=== PATIENT | male | born 1965 | race Caucasian/White ===

== ENCOUNTER → 2021-12-24 | Outpatient (CLI) | payer OTHER ==
[2015-08-24 19:23] VITALS: BP 137/92
[~2021-12-24] MED LIST: ALLO300T PO; CELE200C PO; CYAN-25 PO; ERGO2000 PO; GABA-585 PO; PHEN37.53 PO; SERT100T PO
--- NOTE | 2021-12-24 14:43 | PDOC1 ---
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 which is exacerbated the pain significantly patient reports pain across the low back and the bilateral lower extremities posterior gluteus posterior lateral thigh lateral anterior thigh anteromedial thighs medial lower leg some in the posterior calf as well and into the top of the foot bilaterally patient reports is slightly worse on the left than the right but present bilaterally worse with walking standing changing positions standing for more than 10 to 15minutes patient must sit and rest patient reports is awakened from sleep about 2-3 times a night does not affect his bowel bladder control but does affect his go to walk otherwise not use any assistive devices ambulate currently. Patient reports that he is sad chiropractic treatment in the past also is doing exercises from that at home also doing some walking every other day when he can patient has a TENS unit that he is borrowed from his son which she tried but was not successful in decreasing the pain as well. Patient reports is been taking [id number] Tylenol as well as ibuprofen neither which is decreasing the pain very significantly he is taking oxycodone which does help but only for about 1hour at the most. Patient reports disability rating 0-10 10 being the worst is a 10 with home responsibilities recreation social activity occupation sexual behavior and self-care and 8 with life support activities. Patient have a MRI scan of the lumbar spine showing L4-5 mild degenerative loss of disc height with small diffuse posterior disc bulge ligamentum flavum hypertrophy with effacement of the lateral recesses more so on the left mild to moderate left and mild right foraminal narrowing identified L5- S1 shows small intervertebral disc space with lateral recess is mildly effaced left foramen is mildly narrowed. Patient reports no loss of motor function but significant fatigability of both lower extremities with any walking or standing. Patient reports no bowel or bladder incontinence. PAST MEDICAL HISTORY: PMH: Arthritis, obesity, sleep apnea PREVIOUS SURGERIES: Past Surgical Hx: Right eye surgery status post injury CURRENT MEDICATIONS: Current Meds: Active Scripts Medications Dose Route/Sig Max Daily Dose Days Date Category Allopurinol 300 Mg Tablet 1 Tab PO DAILY 12/24/21 Reported Vitamin D2 (Ergocalciferol (Vitamin D2)) 50 Mcg Tablet 50 Mcg PO DAILY 12/24/21 Reported Zoloft (Sertraline Hcl) 100 Mg Tablet 1 Tab PO DAILY 12/24/21 Reported Gabapentin (Gabapentin) 100 Mg Capsule 100 Mg PO BID 12/24/21 Reported Celebrex (Celecoxib) 200 Mg Capsule 1 Cap PO DAILY 12/24/21 Reported Vitamin B-12 (Cyanocobalamin (Vitamin B-12)) 1,000 Mcg Tablet 1 Tab PO DAILY 30 12/24/21 Reported Phentermine Hcl 37.5 Mg Capsule 1 Cap PO DAILYWBKFT 12/24/21 Reported ALLERGIES; Allergies: Coded Allergies: No Known Drug Allergies (Unverified , 09/06/14) FAMILY HISTORY: Family Hx: No major medical problems or conditions that he is aware of SOCIAL HISTORY: Social Hx: Patient drinks alcohol maybe 2-3 drinks a month does not smoke not use any illegal licit recreational drugs lives with his spouse lives locally in [facility] and works as a large truck shop mechanic. REVIEW OF SYSTEMS: ROS: Positive for those items mentioned in history of present illness, all systems are reviewed, otherwise negative ,and are complete full and well-documented on patient's chart. PHYSICAL EXAM: VS: Blood pressure is 162/77 pulse 94 respirations 16 temperature 90.3 F height is 5 feet 7 inches weight is 281 pounds. PE: PHYSICAL EXAMINATION: GENERAL: The patient is awake, alert, oriented, appropriate, very pleasant in demeanor HEENT: Shows normocephalic, atraumatic. Extraocular movements are intact and symmetrical, right pupil slightly larger than left. Oral cavity: Mucous membranes moist and pink. Dentition is intact. NECK: Shows anterior throat supple without palpable lymphadenopathy noted. S wallow reflex symmetrical. CHEST: Shows normal on inspection. Breath sounds are clear bilaterally, with no rales rhonchi or wheezes auscultated. HEART: Shows S1, S2 clear. No murmurs auscultated. ABDOMEN: Soft, nontender, nondistended. No palpable organomegaly is noted. No rebound or guarding demonstrated. BACK: Shows spine grossly in the midline. Normal-appearing cervical lordotic curvature. There is slightly increased thoracic kyphosis, some minor flattening of the lumbar lordotic curvature. Lumbar paraspinous muscles show symmetrical on inspection, on palpation shows some moderate tenderness diffusely throughout the upper, middle and lower distribution of the paraspinous muscles bilaterally and also into the lower thoracic paraspinous musculature, firm and tender, but without specific trigger points, without radiation of pain. The patient has good rotational motion of the lumbar spine, both laterally as well as extension and flexion without significant difficulty. No tenderness over the spinous pr ocesses, sacrum or sacroiliac regions. EXTREMITIES: Lower extremities show deep tendon reflexes 2+ in the patellar and tendo calcaneus tendons. Motor exam is 4 on a scale of 5 with right dorsiflexion, extension, quadriceps and hamstring flexion and 4/5 on the left. Peripheral pulses are 1+ posterior tibial. No peripheral edema is noted bilaterally. Lower extremities are warm and dry to touch, equal in color and appearance. Straight leg raise noted to be positive on the left at approximate 45 degrees decreased knee flexion negative on the right. Gaenslen's and Lan's maneuvers are negative bilaterally. The patient is able to stand, stand on his toes without significant difficulty or loss of balance walks with a slight favoring gait does appear to favor the left lower extremity slightly but not use any assistive devices to ambulate. SKIN: Shows warm and dry, good turgor. No edema. No sores, rashes or bruising throughout. IMPRESSION: Impression: 56-year-old male with approximate 14-month history low back bilateral lower extremity pain slightly worse on the left than right present bilaterally f ollowing an L4-5 dermatomal distribution. MRI scan lumbar spine as noted. Arthritis Shortness of breath with sleep apnea Plan: Options were discussed with the patient and patient spouse who accompanied him to his visit today. We discussed interventional techniques as well as medication management and continued physical therapies. Patient would like to pursue interventional techniques. We discussed a lumbar epidural steroid injections description as well as anatomical models to describe the procedure. Patient will wait for preauthorization with insurance provider, once obtained we will plan on translaminar approach L4-5 level lumbar epidural steroid injection with fluoroscopic guidance. In meantime, will call in a prescription for a Medrol Dosepak, patient was given instructions well side effects beware with the medication. Patient will continue with stretching strength exercises walking as tolerated, and oral analgesics as currently. KERON STAHL MD Dec 24, 2021 14:43
== END | disposition home or self-care (01) ==
LOC: PNCL 14:09
PROVIDERS: ATTEND Anesthesiology
DX: M54.50 Low back pain, unspecified (principal); M79.605 Pain in left leg; M79.604 Pain in right leg; M19.90 Unspecified osteoarthritis, unspecified site; E66.9 Obesity, unspecified; G47.30 Sleep apnea, unspecified; Z79.899 Other long term (current) drug therapy
CPT/HCPCS: G0463

== ENCOUNTER → 2022-01-02 | Outpatient (CLI) | payer OTHER ==
[2015-08-24 19:23] VITALS: BP 137/92
[~2022-01-02] MED LIST changes: +DEXAMETHASONE PRES.FREE 10 MG/ML VIAL. ONE; +IOHEXOL 180 MG/ML 10 ML VIAL. ONE
--- NOTE | 2022-01-02 12:20 | PDOC ---
Progress Note - Pain Clinic Date of Service: DOS: DATE: 01/02/22 TIME: 12:18 Diagnosis: Dx: Lumbar radiculopathy with lumbar degenerative disc disease History or Present Illness: HPI: 56-year-old male returns for follow-up status post initial evaluation and preauthorization for lumbar epidural steroid injection. Patient reports still pain in the low back bilateral lower extremities right essentially equal to left at this time patient reports its worse with walking standing changing positions better with sitting or laying down generally does not awaken her from sleep at night patient reports an 8-9 on scale 10 is worst 8 on average 8 its least is an 8 today. We did try Medrol Dosepak and patient did well with this for about 5 days patient reports pain is reduced by about 40 to 50% within began to return after the Medrol Dosepak was finished. Patient reports no new motor or sensory deficits no bowel or bladder incontinence. Physical Exam: VS: Blood pressure is 160/86 pulse 83 respirations 18 temperature 98.0 F height 5 feet 7 inches weight 276 pounds. PE: PHYSICAL EXAMINATION: GENERAL: The patient is awake, alert, oriented, appropriate, very pleasant in demeanor HEENT: Shows normocephalic, atraumatic. Extraocular movements are intact and symmetrical. Oral cavity: Mucous membranes moist and pink. Dentition is intact. NECK: Shows anterior throat supple without palpable lymphadenopathy noted. Swallow reflex symmetrical. CHEST: Shows normal on inspection. Breath sounds are clear bilaterally. HEART: Shows S1, S2 clear. No murmurs auscultated. ABDOMEN: Soft, nontender, nondistended. No palpable organomegaly is noted. BACK: Shows spine grossly in the midline. Normal-appearing cervical lordotic curvature. There is slightly increased thoracic kyphosis, some minor flattening of the lumbar lordotic curvature. Lumbar paraspinous muscles show symmetrical on inspection, on palpation shows some moderate tenderness diffusely throughout the upper, middle and lower distribution of the paraspinous muscles without specific trigger points, without radiation of pain. The patient has good rotational motion of the lumbar spine, both laterally as well as extension and flexion without significant difficulty. No tenderness over the spinous processes, sacrum or sacroiliac regions. EXTREMITIES: Lower extremities show deep tendon reflexes 2+ in the patellar and tendo calcaneus tendons. Motor exam is 4 on a scale of 5 with right dorsiflexion, extension, quadriceps and hamstring flexion and 4/5 on the left. Peripheral pulses are 1+ posterior tibial. No peripheral edema is noted bilaterally. Lower extremities are warm and dry. SKIN: Shows warm and dry, good turgor. No edema. No sores, rashes or bruising throughout. Procedure: Procedure: Options were discussed with the patient. Patient's old chart was reviewed his his current medication regimen updated current view of systems updated today as well. We will proceed with a lumbar epidural steroid injection today with fluoroscopic guidance. Risks were discussed including but not limited to: Bleeding, infection, possibility of epidural hematoma and subsequent neurological compromise, dural puncture, headaches, spinal cord and/or nerve damage, side effects of steroid medication, and poor results regarding pain control. Patient understands and wished to proceed. Patient will return to the clinic in approximate 2 weeks for follow-up, was counseled as to return appointment, activity level, and side effects to be aware of. Medication Injected: Med Injected: Procedure is lumbar epidural steroid injection under local anesthetic using sterile prep and drape at the L4-5 level using C-arm fluoroscopic guidance in both AP and lateral views medications injected is 120 mg methylprednisolone +10mL preservative-free normal saline and 2 mL contrast- condition at discharge is stable patient tolerated procedure well had no complications. Condition at Discharge: Condition at Discharge: Condition at discharge is stable, patient Shadi the procedure well and had no complications. KERON STAHL MD Jan 02, 2022 12:20
--- NOTE | 2022-01-02 12:21 | PDOC4 ---
Procedure Note: ICD 10 Code: ICD 10 Code: M54.16 M51.36 Procedure Note: Patient was consented for lumbar epidural steroid injection with fluoroscopic guidance. Risks were discussed including but not limited to: Bleeding, infection, possibility of epidural hematoma and subsequent neurological compromise, dural puncture, headaches, spinal cord and/or nerve damage, side effects of steroid medication, and poor results regarding pain control. Patient understands and wished to proceed. Procedure is lumbar epidural steroid injection under local anesthetic using sterile prep and drape at the L4-5 level using C-arm fluoroscopic guidance in both AP and lateral views medications injected is 120 mg methylprednisolone +10mL preservative-free normal saline and 2 mL contrast- condition at discharge is stable patient tolerated procedure well had no complications. KERON STAHL MD Jan 02, 2022 12:21
== END | disposition home or self-care (01) ==
LOC: PNCL 11:22
PROVIDERS: ATTEND Anesthesiology
DX: M51.16 Intervertebral disc disorders with radiculopathy, lumbar region (principal); Z79.899 Other long term (current) drug therapy
CPT/HCPCS: 62323; J1100; Q9965

== ENCOUNTER → 2022-02-04 | Outpatient (CLI) | payer OTHER ==
[2015-08-24 19:23] VITALS: BP 137/92
[~2022-02-04] MED LIST changes: -DEXAMETHASONE PRES.FREE 10 MG/ML VIAL. ONE; -IOHEXOL 180 MG/ML 10 ML VIAL. ONE
--- NOTE | 2022-02-04 10:16 | PDOC ---
Progress Note - Pain Clinic Date of Service: DOS: DATE: 02/04/22 TIME: 10:12 Diagnosis: Dx: Lumbar radiculopathy with lumbar degenerative disc disease History or Present Illness: HPI: 56-year-old male returns for follow-up status post lumbar epidural steroid injection x1. Patient reports about 75% improvement doing much better after the first injection of pain in the bilateral lower extremities much less patient is increase his activity to greater ease and comfort by doing work activities with greater ease home activities greater ease travel with greater ease patient reports he is down on his feet longer and does not tires easily feels he has more energy now and is still about a 60% improvement overall even after several weeks from his injection which was 4 weeks ago. Patient reports that he is increasing his stretching activities mostly in the mornings also decreased his oral anti-inflammatories significantly no longer taking until the last couple days. Patient reports no loss of motor function no bowel or bladder incont inence still significant pain in the low back with pain rating to the lower extremities posterior gluteus posterior lateral thigh lateral anterior thighs anteromedial thighs medial lower legs and the calves as well bilaterally patient reports off-and-on intensity worse with standing walking changing positions aching pain in the back shooting and tight in the back tingling burning s ometimes cramping in the legs as well. Patient reports his pain is a 6 on scale 10 at all times over the past week worst least and average is a 6 today. Patient bowel bladder incontinence no loss of motor function but still some significant fatigability when he is on his feet more than an hour or so. Physical Exam: VS: Blood pressure is 144/85 pulse 93 respirations 18 temperature 98.7 F height is 5 foot 6 inches weight is 270 pounds. PE: PHYSICAL EXAMINATION: GENERAL: The patient is awake, alert, oriented, appropriate, very pleasant in demeanor HEENT: Shows normocephalic, atraumatic. Extraocular movements are intact and symmetrical. Oral cavity: Mucous membranes moist and pink. Dentition is intac t. NECK: Shows anterior throat supple without palpable lymphadenopathy noted. Swallow reflex symmetrical. CHEST: Shows normal on inspection. Breath sounds are clear bilaterally. HEART: Shows S1, S2 clear. No murmurs auscultated. ABDOMEN: Soft, nontender, nondistended. No palpable organomegaly is noted. BACK: Shows spine grossly in the midline. Normal-appearing cervical lordotic curvature. There is slightly increased thoracic kyphosis, some mild flattening of the lumbar lordotic curvature. Lumbar paraspinous muscles show symmetrical on inspection, on palpation shows some moderate tenderness diffusely throughout the upper, middle and lower distribution of the paraspinous muscles, but without specific trigger points, without radiation of pain. The patient has good rotational motion of the lumbar spine, both laterally as well as extension and flexion without significant difficulty. EXTREMITIES: Lower extremities show deep tendon reflexes 2+ in the patellar and tendo calcaneus tendons. Motor exam is 4 on a scale of 5 with right dorsiflexion, extension, quadriceps and hamstring flexion and 4/5 on the left. Peripheral pulses are 1+ posterior tibial. No peripheral edema is noted bilaterally. Lower extremities are warm and dry. SKIN: Shows warm and dry, good turgor. No edema. No sores, rashes or bruising throughout. Procedure: Procedure: Options discussed with patient. Patient's old chart was reviewed his current medication regimen updated current review of systems updated today as well. We will preauthorize patient for a lumbar epidural steroid injection as he did very well after the first injection the pain returning in the bilateral lower extremities and L4-5 dermatomal distribution. Once approved, patient will return for translaminar approach L4-5 level lumbar epidural steroid injection with fluoroscopic guidance. In the meantime, patient continue stretching and strength exercises as well as oral analgesics as necessary. We discussed weight loss with the patient today when he is making some strides to reduce calorie intake with his diet and exercising more now that he is slightly more comfor table. Medication Injected: Med Injected: None Condition at Discharge: Condition at Discharge: Condition at discharge is stable. KERON STAHL MD February 04, 2022 10:16
== END | disposition home or self-care (01) ==
LOC: PNCL 09:21
PROVIDERS: ATTEND Anesthesiology
DX: M51.16 Intervertebral disc disorders with radiculopathy, lumbar region (principal); Z79.899 Other long term (current) drug therapy
CPT/HCPCS: 99212; G0463